=== PATIENT | male | born 1950 | race African-American/Black ===

== ENCOUNTER 2016-07-11 10:18 | Inpatient (IN) | payer MEDICARE ==
[~2016-07-11] VITALS: Ht 180.3 cm; Wt 55.1 kg
[~2016-07-11 10:18] MED LIST: LISI-661 PO; METF500T4 PO; MULT1TAB70 PO; OMEP20 PO; VITAD1000 PO
[2016-07-11 10:38] LABS: GLUCOSE,POINT OF CARE 582 MG/DL (70-110)
[2016-07-11] MEDS ORDERED: PIPERACILLIN/TAZO 3.375 GM/D5W 50 ML IV ONE (11:30)
[2016-07-11] MEDS ORDERED: SODIUM CHLORIDE 0.9% 1,000 ML IV ONE (11:30)
[2016-07-11] MEDS ORDERED: INSULIN REGULAR, HUMAN 100 UNITS/ML IVP ONE (11:30)
[2016-07-11 12:05] LABS: BASOPHILS % (AUTO) 0.9 % (0.0-2.0); EOSINOPHILS % (AUTO) 1.3 % (1.0-6.0); HEMATOCRIT 29.1 % (41-53); HEMOGLOBIN 9.2 g/dL (13.5-17.5); LYMPHOCYTES # (AUTO) 1.6 K/uL (1.0-4.8); LYMPHOCYTES % (AUTO) 22.2 % (22.0-44.0); MEAN CORPUSCULAR HEMOGLOBIN 28.5 pg (26.0-34.0); MEAN CORPUSCULAR HGB CONC 31.8 G/dL (31.0-37.0); MEAN CORPUSCULAR VOLUME 90 fL (80-100); MONOCYTES # (AUTO) 0.3 K/uL (0.1-1.0); MONOCYTES % (AUTO) 4.3 % (2.0-9.0); NEUTROPHILS % (AUTO) 71.3 % (40.0-70.0); PLATELET COUNT (AUTO) 547 K/uL (150-450); RED BLOOD CELL COUNT(AUTO) 3.24 MIL/uL (4.50-5.90); RED CELL DISTRIBUTION WIDTH 14.6 % (11.5-14.5)
[2016-07-11 12:27] LABS: ALBUMIN 2.8 g/dL (3.4-5.0); BILIRUBIN,TOTAL 0.3 mg/dL (0.1-1.0); CALCIUM, TOTAL 9.7 mg/dL (8.8-10.5); CREATININE 1.44 mg/dL (0.60-1.30); POTASSIUM 4.7 mmol/L (3.5-5.1); TOTAL PROTEIN, SERUM 8.9 g/dL (6.4-8.2)
[2016-07-11 12:34] LABS: GLUCOSE,POINT OF CARE 514 MG/DL (70-110)
[2016-07-11 13:42] LABS: GLUCOSE,POINT OF CARE 257 MG/DL (70-110)
[2016-07-11 13:42] LABS: GLUCOSE,POINT OF CARE 342 MG/DL (70-110)
[2016-07-11] MEDS ORDERED: ACETAMINOPHEN 325 MG TABLET PO PRN ×2 (14:00→18:30)
[2016-07-11] MEDS ORDERED: ONDANSETRON HCL 4 MG/2 ML VIAL IVP PRN ×2 (14:00→18:30)
[2016-07-11] MEDS ORDERED: DEXTROSE 50%-WATER 25 GM/50 ML SYRINGE IVP PRN ×3 (14:00→18:30)
[2016-07-11] MEDS ORDERED: INSULIN REGULAR, HUMAN 100 UNITS/ML SQ PRN (14:00)
[2016-07-11 14:50] VITALS: BP 121/88
[2016-07-11] MEDS ORDERED: MORPHINE SULFATE 2 MG/ML SYRINGE IVP PRN (18:30)
[2016-07-11] MEDS ORDERED: HYDROCODONE/ACETAMINOPHEN 5-325 MG TABLET PO PRN (18:30)
[2016-07-11] MEDS ORDERED: ZOLPIDEM TARTRATE 5 MG TABLET PO PRN (18:30)
[2016-07-11] MEDS ORDERED: ALBUTEROL SULFATE 2.5 MG/0.5 ML NEB SOLUTION NEB PRN (18:30)
[2016-07-11] MEDS ORDERED: MAGNESIUM HYDROXIDE SUSPENSION 30 ML UDCUP PO PRN (18:30)
[2016-07-11] MEDS ORDERED: IPRATROPIUM BROMIDE 0.5 MG/2.5 ML NEB SOLUTION NEB PRN (18:30)
[2016-07-11] MEDS ORDERED: BISACODYL 10 MG RECTAL RECTAL SUPPOSITORY PR PRN (18:30)
[2016-07-11] MEDS: INSULIN ASPART 100 UNITS/ML SQ PRN ×2 (18:47→20:32)
[2016-07-11 18:52] LABS: GLUCOSE,POINT OF CARE 241 MG/DL (70-110)
[2016-07-11 20:20] VITALS: BP 117/75
[2016-07-11] MEDS: DOCUSATE SODIUM 100 MG CAPSULE PO SCH (20:29)
[2016-07-11] MEDS: INSULIN DETEMIR 100 UNITS/ML SQ SCH (20:31)
[2016-07-11 21:23] LABS: GLUCOSE COMMENT 1 Received Meds; GLUCOSE,POINT OF CARE 227 MG/DL (70-110)
[2016-07-11 23:25] VITALS: BP 103/69
[2016-07-11] MEDS: HEPARIN SODIUM,PORCINE 5,000 UNITS/ML VIAL SQ SCH (23:37)
[2016-07-12 04:00] VITALS: BP 126/81
[2016-07-12] MEDS: INSULIN ASPART 100 UNITS/ML SQ PRN ×4 (05:58→20:14)
[2016-07-12 06:18] LABS: GLUCOSE,POINT OF CARE 124 MG/DL (70-110)
[2016-07-12 06:42] LABS: BASOPHILS % (AUTO) 0.8 % (0.0-2.0); EOSINOPHILS % (AUTO) 1.5 % (1.0-6.0); HEMATOCRIT 25.4 % (41-53); LYMPHOCYTES # (AUTO) 2.5 K/uL (1.0-4.8); LYMPHOCYTES % (AUTO) 42.7 % (22.0-44.0); MEAN CORPUSCULAR HEMOGLOBIN 28.9 pg (26.0-34.0); MEAN CORPUSCULAR HGB CONC 31.5 G/dL (31.0-37.0); MEAN CORPUSCULAR VOLUME 92 fL (80-100); MONOCYTES # (AUTO) 0.4 K/uL (0.1-1.0); MONOCYTES % (AUTO) 6.2 % (2.0-9.0); NEUTROPHILS # (AUTO) 2.8 K/uL (1.8-7.7); NEUTROPHILS % (AUTO) 48.8 % (40.0-70.0); PLATELET COUNT (AUTO) 453 K/uL (150-450); RED BLOOD CELL COUNT(AUTO) 2.78 MIL/uL (4.50-5.90); RED CELL DISTRIBUTION WIDTH 14.6 % (11.5-14.5); WHITE BLOOD COUNT (AUTO) 5.8 K/uL (4.5-11.0)
[2016-07-12 07:01] LABS: ALANINE AMINOTRANSFERASE 14 U/L (12-78); ALBUMIN 2.2 g/dL (3.4-5.0); ANION GAP 7 mmol/L (8-16); ASPARTATE AMINOTRANSFERASE 13 U/L (15-37); BILIRUBIN,TOTAL 0.2 mg/dL (0.1-1.0); CARBON DIOXIDE 25 mmol/L (22-29); CHLORIDE 99 mmol/L (98-107); CREATININE 1.02 mg/dL (0.60-1.30); GLOMERULAR FILTR. RATE CALC > 60 mL/min (>60); POTASSIUM 3.6 mmol/L (3.5-5.1); SODIUM SERUM 131 mmol/L (136-145); TOTAL PROTEIN, SERUM 7.1 g/dL (6.4-8.2); UREA NITROGEN, BLOOD 15 mg/dL (7-18)
[2016-07-12 07:12] LABS: HEMOGLOBIN A1C > 16.0 % (4.5-6.2)
[2016-07-12 07:59] VITALS: BP 121/83
[2016-07-12] MEDS ORDERED: PANTOPRAZOLE SODIUM 40 MG/VIAL IVP SCH (09:00)
[2016-07-12] MEDS: OMEPRAZOLE 20 MG CAPSULE PO SCH (09:24)
[2016-07-12] MEDS: LISINOPRIL 10 MG TABLET PO SCH (09:25)
[2016-07-12] MEDS: HEPARIN SODIUM,PORCINE 5,000 UNITS/ML VIAL SQ SCH ×2 (09:25→16:40)
[2016-07-12] MEDS: MULTIVITAMINS, THERAPEUTIC TABLET PO SCH (09:25)
[2016-07-12] MEDS: DOCUSATE SODIUM 100 MG CAPSULE PO SCH ×2 (09:25→20:03)
[2016-07-12] MEDS: CHOLECALCIFEROL (VIT D3) 1,000 UNITS TABLET PO SCH (09:28)
[2016-07-12 11:45] VITALS: BP 130/86
[2016-07-12 13:17] LABS: GLUCOSE,POINT OF CARE 188 MG/DL (70-110)
[2016-07-12] MEDS: MINERAL OIL/PETROLATUM 120 GM CREAM TP SCH (13:23)
[2016-07-12 16:00] VITALS: BP 119/76
[2016-07-12 18:22] LABS: GLUCOSE COMMENT 1 Received Meds; GLUCOSE,POINT OF CARE 350 MG/DL (70-110)
[2016-07-12 19:17] VITALS: BP 122/76
[2016-07-12] MEDS: INSULIN DETEMIR 100 UNITS/ML SQ SCH (20:12)
[2016-07-12 21:58] LABS: GLUCOSE COMMENT 1 Received Meds; GLUCOSE,POINT OF CARE 210 MG/DL (70-110)
[2016-07-12 23:30] VITALS: BP 120/68
[2016-07-13] MEDS: HEPARIN SODIUM,PORCINE 5,000 UNITS/ML VIAL SQ SCH ×4 (00:28→23:26)
[2016-07-13 04:40] VITALS: BP 117/65
[2016-07-13 04:51] VITALS: BP 111/60
[2016-07-13 06:36] LABS: EOSINOPHILS % (AUTO) 1.7 % (1.0-6.0); HEMATOCRIT 25.2 % (41-53); LYMPHOCYTES # (AUTO) 2.4 K/uL (1.0-4.8); LYMPHOCYTES % (AUTO) 41.9 % (22.0-44.0); MEAN CORPUSCULAR HEMOGLOBIN 28.8 pg (26.0-34.0); MEAN CORPUSCULAR HGB CONC 31.6 G/dL (31.0-37.0); MEAN CORPUSCULAR VOLUME 91 fL (80-100); MONOCYTES # (AUTO) 0.3 K/uL (0.1-1.0); MONOCYTES % (AUTO) 5.4 % (2.0-9.0); NEUTROPHILS # (AUTO) 2.9 K/uL (1.8-7.7); PLATELET COUNT (AUTO) 407 K/uL (150-450); RED BLOOD CELL COUNT(AUTO) 2.77 MIL/uL (4.50-5.90); RED CELL DISTRIBUTION WIDTH 14.6 % (11.5-14.5); WHITE BLOOD COUNT (AUTO) 5.7 K/uL (4.5-11.0)
[2016-07-13 07:17] LABS: GLUCOSE,POINT OF CARE 79 MG/DL (70-110)
[2016-07-13 07:30] LABS: ALANINE AMINOTRANSFERASE 14 U/L (12-78); ALBUMIN 2.1 g/dL (3.4-5.0); ANION GAP 8 mmol/L (8-16); ASPARTATE AMINOTRANSFERASE 14 U/L (15-37); BILIRUBIN,TOTAL 0.2 mg/dL (0.1-1.0); CALCIUM, TOTAL 8.8 mg/dL (8.8-10.5); CARBON DIOXIDE 23 mmol/L (22-29); CHLORIDE 100 mmol/L (98-107); GLOMERULAR FILTR. RATE CALC > 60 mL/min (>60); POTASSIUM 3.7 mmol/L (3.5-5.1); SODIUM SERUM 131 mmol/L (136-145); TOTAL PROTEIN, SERUM 6.7 g/dL (6.4-8.2); UREA NITROGEN, BLOOD 15 mg/dL (7-18)
[2016-07-13 08:20] VITALS: BP 113/65
[2016-07-13] MEDS: CHOLECALCIFEROL (VIT D3) 1,000 UNITS TABLET PO SCH (08:29)
[2016-07-13] MEDS: DOCUSATE SODIUM 100 MG CAPSULE PO SCH ×2 (08:29→20:11)
[2016-07-13] MEDS: MULTIVITAMINS, THERAPEUTIC TABLET PO SCH (08:29)
[2016-07-13] MEDS: LISINOPRIL 10 MG TABLET PO SCH (08:29)
[2016-07-13] MEDS: OMEPRAZOLE 20 MG CAPSULE PO SCH (08:29)
[2016-07-13] MEDS: POVIDONE-IODINE 10% 120 ML SOLUTION TP SCH (08:30)
[2016-07-13] MEDS: MINERAL OIL/PETROLATUM 120 GM CREAM TP SCH (08:30)
[2016-07-13 11:34] VITALS: BP 113/82
[2016-07-13] MEDS: INSULIN ASPART 100 UNITS/ML SQ PRN ×3 (11:42→21:46)
[2016-07-13 14:07] LABS: GLUCOSE COMMENT 1 Received Meds; GLUCOSE,POINT OF CARE 177 MG/DL (70-110)
[2016-07-13 19:35] VITALS: BP 131/78
[2016-07-13 19:57] LABS: GLUCOSE COMMENT 1 Received Meds; GLUCOSE,POINT OF CARE 185 MG/DL (70-110)
[2016-07-13] MEDS: INSULIN DETEMIR 100 UNITS/ML SQ SCH (21:43)
[2016-07-13 23:34] VITALS: BP 115/65
[2016-07-13 23:47] LABS: GLUCOSE COMMENT 1 Received Meds; GLUCOSE,POINT OF CARE 236 MG/DL (70-110)
[2016-07-14 04:02] VITALS: BP 137/64
[2016-07-14 06:27] LABS: GLUCOSE,POINT OF CARE 61 MG/DL (70-110)
[2016-07-14 06:52] LABS: GLUCOSE,POINT OF CARE 78 MG/DL (70-110)
[2016-07-14 07:11] LABS: BASOPHILS % (AUTO) 0.6 % (0.0-2.0); EOSINOPHILS % (AUTO) 1.1 % (1.0-6.0); HEMATOCRIT 25.3 % (41-53); LYMPHOCYTES # (AUTO) 1.4 K/uL (1.0-4.8); LYMPHOCYTES % (AUTO) 28.9 % (22.0-44.0); MEAN CORPUSCULAR HEMOGLOBIN 28.8 pg (26.0-34.0); MEAN CORPUSCULAR HGB CONC 31.6 G/dL (31.0-37.0); MEAN CORPUSCULAR VOLUME 91 fL (80-100); MONOCYTES # (AUTO) 0.4 K/uL (0.1-1.0); MONOCYTES % (AUTO) 7.4 % (2.0-9.0); PLATELET COUNT (AUTO) 425 K/uL (150-450); RED BLOOD CELL COUNT(AUTO) 2.78 MIL/uL (4.50-5.90); RED CELL DISTRIBUTION WIDTH 14.6 % (11.5-14.5); WHITE BLOOD COUNT (AUTO) 4.9 K/uL (4.5-11.0)
[2016-07-14 07:31] VITALS: BP 116/69
[2016-07-14 07:37] LABS: ALANINE AMINOTRANSFERASE 16 U/L (12-78); ALBUMIN 2.3 g/dL (3.4-5.0); ANION GAP 8 mmol/L (8-16); ASPARTATE AMINOTRANSFERASE 13 U/L (15-37); BILIRUBIN,TOTAL 0.1 mg/dL (0.1-1.0); CALCIUM, TOTAL 9.2 mg/dL (8.8-10.5); CARBON DIOXIDE 24 mmol/L (22-29); CHLORIDE 100 mmol/L (98-107); CREATININE 1.15 mg/dL (0.60-1.30); GLOMERULAR FILTR. RATE CALC > 60 mL/min (>60); POTASSIUM 3.9 mmol/L (3.5-5.1); SODIUM SERUM 132 mmol/L (136-145); TOTAL PROTEIN, SERUM 7.1 g/dL (6.4-8.2); UREA NITROGEN, BLOOD 19 mg/dL (7-18)
[2016-07-14] MEDS: CHOLECALCIFEROL (VIT D3) 1,000 UNITS TABLET PO SCH (08:06)
[2016-07-14] MEDS: DOCUSATE SODIUM 100 MG CAPSULE PO SCH ×2 (08:06→21:00)
[2016-07-14] MEDS: MULTIVITAMINS, THERAPEUTIC TABLET PO SCH (08:06)
[2016-07-14] MEDS: OMEPRAZOLE 20 MG CAPSULE PO SCH (08:06)
[2016-07-14] MEDS: POVIDONE-IODINE 10% 120 ML SOLUTION TP SCH (08:06)
[2016-07-14] MEDS: HEPARIN SODIUM,PORCINE 5,000 UNITS/ML VIAL SQ SCH ×3 (08:06→22:18)
[2016-07-14] MEDS: LISINOPRIL 10 MG TABLET PO SCH (08:06)
[2016-07-14] MEDS: MINERAL OIL/PETROLATUM 120 GM CREAM TP SCH (08:07)
[2016-07-14 11:28] VITALS: BP 129/77
[2016-07-14] MEDS: INSULIN ASPART 100 UNITS/ML SQ PRN ×3 (12:12→22:16)
[2016-07-14 12:37] LABS: GLUCOSE COMMENT 1 Received Meds; GLUCOSE,POINT OF CARE 265 MG/DL (70-110)
[2016-07-14 15:15] VITALS: BP 109/74
[2016-07-14 18:07] LABS: GLUCOSE COMMENT 1 Received Meds; GLUCOSE,POINT OF CARE 133 MG/DL (70-110)
[2016-07-14 20:03] VITALS: BP 120/76
[2016-07-14] MEDS: INSULIN DETEMIR 100 UNITS/ML SQ SCH (22:16)
[2016-07-14 23:56] VITALS: BP 123/71
[2016-07-15 00:17] LABS: GLUCOSE COMMENT 1 Received Meds; GLUCOSE,POINT OF CARE 339 MG/DL (70-110)
[2016-07-15 05:45] VITALS: BP 116/70
[2016-07-15] MEDS: INSULIN ASPART 100 UNITS/ML SQ PRN ×4 (06:15→20:55)
[2016-07-15 06:26] LABS: BASOPHILS % (AUTO) 0.7 % (0.0-2.0); EOSINOPHILS % (AUTO) 2.7 % (1.0-6.0); HEMATOCRIT 24.9 % (41-53); HEMOGLOBIN 7.9 g/dL (13.5-17.5); LYMPHOCYTES # (AUTO) 1.4 K/uL (1.0-4.8); LYMPHOCYTES % (AUTO) 31.9 % (22.0-44.0); MEAN CORPUSCULAR HGB CONC 31.9 G/dL (31.0-37.0); MEAN CORPUSCULAR VOLUME 91 fL (80-100); MONOCYTES # (AUTO) 0.4 K/uL (0.1-1.0); NEUTROPHILS # (AUTO) 2.5 K/uL (1.8-7.7); NEUTROPHILS % (AUTO) 55.7 % (40.0-70.0); PLATELET COUNT (AUTO) 390 K/uL (150-450); RED BLOOD CELL COUNT(AUTO) 2.74 MIL/uL (4.50-5.90); WHITE BLOOD COUNT (AUTO) 4.5 K/uL (4.5-11.0)
[2016-07-15 06:37] LABS: GLUCOSE COMMENT 1 Received Meds; GLUCOSE,POINT OF CARE 217 MG/DL (70-110)
[2016-07-15 06:38] LABS: ALANINE AMINOTRANSFERASE 16 U/L (12-78); ALBUMIN 2.3 g/dL (3.4-5.0); ANION GAP 9 mmol/L (8-16); ASPARTATE AMINOTRANSFERASE 14 U/L (15-37); BILIRUBIN,TOTAL 0.1 mg/dL (0.1-1.0); CARBON DIOXIDE 23 mmol/L (22-29); CHLORIDE 98 mmol/L (98-107); CREATININE 1.21 mg/dL (0.60-1.30); GLOMERULAR FILTR. RATE CALC > 60 mL/min (>60); SODIUM SERUM 130 mmol/L (136-145); TOTAL PROTEIN, SERUM 6.9 g/dL (6.4-8.2); UREA NITROGEN, BLOOD 19 mg/dL (7-18)
[2016-07-15 07:16] VITALS: BP 141/79
[2016-07-15] MEDS: DOCUSATE SODIUM 100 MG CAPSULE PO SCH ×2 (07:54→19:50)
[2016-07-15] MEDS: CHOLECALCIFEROL (VIT D3) 1,000 UNITS TABLET PO SCH (07:54)
[2016-07-15] MEDS: HEPARIN SODIUM,PORCINE 5,000 UNITS/ML VIAL SQ SCH ×3 (07:54→23:49)
[2016-07-15] MEDS: LISINOPRIL 10 MG TABLET PO SCH (07:54)
[2016-07-15] MEDS: MULTIVITAMINS, THERAPEUTIC TABLET PO SCH (07:54)
[2016-07-15] MEDS: MINERAL OIL/PETROLATUM 120 GM CREAM TP SCH (07:55)
[2016-07-15] MEDS: POVIDONE-IODINE 10% 120 ML SOLUTION TP SCH (07:55)
[2016-07-15] MEDS: OMEPRAZOLE 20 MG CAPSULE PO SCH (08:00)
[2016-07-15 11:20] VITALS: BP 128/77
[2016-07-15 12:07] LABS: GLUCOSE COMMENT 1 Received Meds; GLUCOSE,POINT OF CARE 145 MG/DL (70-110)
[2016-07-15 15:00] VITALS: BP 130/71
[2016-07-15 19:15] VITALS: BP 137/78
[2016-07-15 19:21] LABS: GLUCOSE COMMENT 1 Received Meds; GLUCOSE,POINT OF CARE 170 MG/DL (70-110)
[2016-07-15] MEDS: INSULIN DETEMIR 100 UNITS/ML SQ SCH (20:56)
[2016-07-15 21:27] LABS: GLUCOSE,POINT OF CARE 211 MG/DL (70-110)
[2016-07-16] VITALS (15 sets, daily range): BP systolic 108–165; BP diastolic 58–99
[2016-07-16 06:05] LABS: BASOPHILS % (AUTO) 0.6 % (0.0-2.0); EOSINOPHILS % (AUTO) 3.3 % (1.0-6.0); HEMATOCRIT 25.8 % (41-53); HEMOGLOBIN 8.2 g/dL (13.5-17.5); LYMPHOCYTES # (AUTO) 1.8 K/uL (1.0-4.8); LYMPHOCYTES % (AUTO) 37.7 % (22.0-44.0); MEAN CORPUSCULAR HEMOGLOBIN 28.8 pg (26.0-34.0); MEAN CORPUSCULAR HGB CONC 31.8 G/dL (31.0-37.0); MEAN CORPUSCULAR VOLUME 91 fL (80-100); MONOCYTES # (AUTO) 0.5 K/uL (0.1-1.0); MONOCYTES % (AUTO) 11.2 % (2.0-9.0); NEUTROPHILS # (AUTO) 2.3 K/uL (1.8-7.7); NEUTROPHILS % (AUTO) 47.2 % (40.0-70.0); PLATELET COUNT (AUTO) 386 K/uL (150-450); RED BLOOD CELL COUNT(AUTO) 2.84 MIL/uL (4.50-5.90); RED CELL DISTRIBUTION WIDTH 15.3 % (11.5-14.5); WHITE BLOOD COUNT (AUTO) 4.9 K/uL (4.5-11.0)
[2016-07-16 06:24] LABS: ALANINE AMINOTRANSFERASE 17 U/L (12-78); ALBUMIN 2.2 g/dL (3.4-5.0); ANION GAP 6 mmol/L (8-16); ASPARTATE AMINOTRANSFERASE 16 U/L (15-37); BILIRUBIN,TOTAL 0.1 mg/dL (0.1-1.0); CALCIUM, TOTAL 8.8 mg/dL (8.8-10.5); CARBON DIOXIDE 25 mmol/L (22-29); CHLORIDE 99 mmol/L (98-107); CREATININE 1.19 mg/dL (0.60-1.30); GLOMERULAR FILTR. RATE CALC > 60 mL/min (>60); POTASSIUM 4.1 mmol/L (3.5-5.1); SODIUM SERUM 130 mmol/L (136-145); TOTAL PROTEIN, SERUM 6.8 g/dL (6.4-8.2); UREA NITROGEN, BLOOD 21 mg/dL (7-18)
[2016-07-16 06:36] LABS: GLUCOSE COMMENT 1 Received Meds; GLUCOSE,POINT OF CARE 174 MG/DL (70-110)
[2016-07-16] MEDS: HEPARIN SODIUM,PORCINE 5,000 UNITS/ML VIAL SQ SCH ×3 (08:00→23:19)
[2016-07-16] MEDS: POVIDONE-IODINE 10% 120 ML SOLUTION TP SCH (09:00)
[2016-07-16] MEDS: DOCUSATE SODIUM 100 MG CAPSULE PO SCH ×2 (09:00→20:02)
[2016-07-16] MEDS ORDERED: POTASSIUM CHLORIDE 10 MEQ ER TABLET PO ONE (09:45)
[2016-07-16] MEDS ORDERED: MIDAZOLAM HCL 2 MG/2 ML VIAL ONE ×3 (11:42→14:55)
[2016-07-16] MEDS ORDERED: FentaNYL CITRATE-PF 100 MCG/2 ML VIAL ONE ×3 (11:42→14:55)
[2016-07-16] MEDS ORDERED: HEPARIN SODIUM 1000 UNITS/NS 500 ML ONE ×3 (11:43→15:14)
[2016-07-16] MEDS ORDERED: SODIUM BICARBONATE 50 MEQ/50 ML VIAL ONE (11:43)
[2016-07-16] MEDS ORDERED: LIDOCAINE HCL/PF 1% 30 ML VIAL ONE (11:43)
[2016-07-16] MEDS ORDERED: 0.9% SODIUM CHLORIDE 10 ML SYRINGE IVP ONE (11:43)
[2016-07-16 12:02] LABS: GLUCOSE,POINT OF CARE 136 MG/DL (70-110)
[2016-07-16] MEDS ORDERED: IODIXANOL 320 MG/ML 100 ML VIAL ONE (12:37)
[2016-07-16] MEDS ORDERED: IODIXANOL 320 MG/ML 50 ML VIAL ONE ×2 (12:46→15:27)
[2016-07-16] MEDS ORDERED: IODIXANOL 320 MG/ML 100 ML VIAL IARTER ONE (13:00)
[2016-07-16] MEDS: OMEPRAZOLE 20 MG CAPSULE PO SCH (13:00)
[2016-07-16] MEDS ORDERED: SODIUM CHLORIDE 0.9% 500 ML IV ONE (13:09)
[2016-07-16] MEDS ORDERED: FentaNYL CITRATE-PF 100 MCG/2 ML VIAL IVP ONE ×7 (13:10→15:49)
[2016-07-16] MEDS ORDERED: MIDAZOLAM HCL 2 MG/2 ML VIAL IVP ONE ×7 (13:10→15:49)
[2016-07-16] MEDS ORDERED: LIDOCAINE 1% 30 ML/SOD BICARB 8.4% 4 ML SQ ONE (13:15)
[2016-07-16] MEDS ORDERED: HEPARIN SODIUM 1000 UNITS/NS 500 ML IARTER ONE (13:15)
[2016-07-16] MEDS ORDERED: IODIXANOL 320 MG/ML 50 ML VIAL IARTER ONE ×2 (13:26)
[2016-07-16] MEDS ORDERED: HEPARIN SODIUM,PORCINE 5,000 UNITS/ML VIAL IVP ONE ×3 (13:33→15:04)
[2016-07-16] MEDS ORDERED: HEPARIN SODIUM,PORCINE 1,000 UNITS/ML 10 ML VIAL ONE (14:59)
[2016-07-16] MEDS ORDERED: DiphenhydrAMINE HCL 50 MG/ML VIAL IVP ONE (15:04)
[2016-07-16] MEDS ORDERED: DiphenhydrAMINE HCL 50 MG/ML VIAL ONE (15:08)
[2016-07-16] MEDS ORDERED: PROTAMINE SULFATE 10 MG/ML 5 ML VIAL IVP ONE (15:51)
[2016-07-16] MEDS ORDERED: PROTAMINE SULFATE 10 MG/ML 5 ML VIAL ONE (15:55)
[2016-07-16] MEDS: MULTIVITAMINS, THERAPEUTIC TABLET PO SCH (17:25)
[2016-07-16] MEDS: LISINOPRIL 10 MG TABLET PO SCH (17:25)
[2016-07-16] MEDS: MINERAL OIL/PETROLATUM 120 GM CREAM TP SCH (17:25)
[2016-07-16] MEDS: CHOLECALCIFEROL (VIT D3) 1,000 UNITS TABLET PO SCH (17:25)
[2016-07-16] MEDS: ASPIRIN 81 MG CHEWABLE TABLET PO SCH (17:28)
[2016-07-16] MEDS: INSULIN ASPART 100 UNITS/ML SQ PRN ×2 (17:44→21:09)
[2016-07-16 17:47] LABS: GLUCOSE,POINT OF CARE 141 MG/DL (70-110)
[2016-07-16] MEDS: INSULIN DETEMIR 100 UNITS/ML SQ SCH (21:09)
[2016-07-16 22:52] LABS: GLUCOSE,POINT OF CARE 292 MG/DL (70-110)
[2016-07-17 04:57] VITALS: BP 132/68
[2016-07-17] MEDS: INSULIN ASPART 100 UNITS/ML SQ PRN ×4 (05:23→20:16)
[2016-07-17 05:47] LABS: GLUCOSE,POINT OF CARE 182 MG/DL (70-110)
[2016-07-17 06:17] LABS: BASOPHILS % (AUTO) 0.5 % (0.0-2.0); EOSINOPHILS % (AUTO) 3.5 % (1.0-6.0); HEMATOCRIT 25.3 % (41-53); LYMPHOCYTES # (AUTO) 1.8 K/uL (1.0-4.8); LYMPHOCYTES % (AUTO) 29.4 % (22.0-44.0); MEAN CORPUSCULAR HEMOGLOBIN 28.9 pg (26.0-34.0); MEAN CORPUSCULAR HGB CONC 31.6 G/dL (31.0-37.0); MEAN CORPUSCULAR VOLUME 91 fL (80-100); MONOCYTES # (AUTO) 0.5 K/uL (0.1-1.0); MONOCYTES % (AUTO) 8.7 % (2.0-9.0); NEUTROPHILS # (AUTO) 3.6 K/uL (1.8-7.7); NEUTROPHILS % (AUTO) 57.9 % (40.0-70.0); PLATELET COUNT (AUTO) 386 K/uL (150-450); RED BLOOD CELL COUNT(AUTO) 2.77 MIL/uL (4.50-5.90); RED CELL DISTRIBUTION WIDTH 15.6 % (11.5-14.5); WHITE BLOOD COUNT (AUTO) 6.2 K/uL (4.5-11.0)
[2016-07-17 06:59] LABS: ALANINE AMINOTRANSFERASE 17 U/L (12-78); ALBUMIN 2.3 g/dL (3.4-5.0); ANION GAP 8 mmol/L (8-16); ASPARTATE AMINOTRANSFERASE 16 U/L (15-37); BILIRUBIN,TOTAL 0.2 mg/dL (0.1-1.0); CARBON DIOXIDE 26 mmol/L (22-29); CHLORIDE 99 mmol/L (98-107); CREATININE 1.03 mg/dL (0.60-1.30); GLOMERULAR FILTR. RATE CALC > 60 mL/min (>60); POTASSIUM 4.1 mmol/L (3.5-5.1); SODIUM SERUM 133 mmol/L (136-145); TOTAL PROTEIN, SERUM 6.9 g/dL (6.4-8.2); UREA NITROGEN, BLOOD 23 mg/dL (7-18)
[2016-07-17 07:50] VITALS: BP 123/72
[2016-07-17] MEDS: CHOLECALCIFEROL (VIT D3) 1,000 UNITS TABLET PO SCH (08:35)
[2016-07-17] MEDS: OMEPRAZOLE 20 MG CAPSULE PO SCH (08:35)
[2016-07-17] MEDS: ASPIRIN 81 MG CHEWABLE TABLET PO SCH (08:35)
[2016-07-17] MEDS: MULTIVITAMINS, THERAPEUTIC TABLET PO SCH (08:35)
[2016-07-17] MEDS: HEPARIN SODIUM,PORCINE 5,000 UNITS/ML VIAL SQ SCH ×2 (08:35→17:28)
[2016-07-17] MEDS: POVIDONE-IODINE 10% 120 ML SOLUTION TP SCH (08:36)
[2016-07-17] MEDS: LISINOPRIL 10 MG TABLET PO SCH (08:36)
[2016-07-17] MEDS: DOCUSATE SODIUM 100 MG CAPSULE PO SCH ×2 (08:36→20:15)
[2016-07-17] MEDS: MINERAL OIL/PETROLATUM 120 GM CREAM TP SCH (08:36)
[2016-07-17 11:36] VITALS: BP 113/78
[2016-07-17 16:41] VITALS: BP 146/86
[2016-07-17 17:22] LABS: GLUCOSE COMMENT 1 Received Meds; GLUCOSE,POINT OF CARE 330 MG/DL (70-110)
[2016-07-17 19:32] VITALS: BP 110/63
[2016-07-17 19:42] LABS: GLUCOSE COMMENT 1 Received Meds; GLUCOSE,POINT OF CARE 273 MG/DL (70-110)
[2016-07-17] MEDS: INSULIN DETEMIR 100 UNITS/ML SQ SCH (20:16)
[2016-07-17 23:26] VITALS: BP 104/61
[2016-07-18 05:19] VITALS: BP 105/59
[2016-07-18 05:27] LABS: GLUCOSE COMMENT 1 Received Meds; GLUCOSE,POINT OF CARE 165 MG/DL (70-110)
[2016-07-18 05:59] LABS: BASOPHILS % (AUTO) 0.5 % (0.0-2.0); EOSINOPHILS % (AUTO) 3.2 % (1.0-6.0); HEMATOCRIT 22.5 % (41-53); HEMOGLOBIN 7.1 g/dL (13.5-17.5); LYMPHOCYTES # (AUTO) 2.3 K/uL (1.0-4.8); LYMPHOCYTES % (AUTO) 29.8 % (22.0-44.0); MEAN CORPUSCULAR HEMOGLOBIN 28.6 pg (26.0-34.0); MEAN CORPUSCULAR HGB CONC 31.5 G/dL (31.0-37.0); MEAN CORPUSCULAR VOLUME 91 fL (80-100); MONOCYTES # (AUTO) 0.7 K/uL (0.1-1.0); NEUTROPHILS # (AUTO) 4.5 K/uL (1.8-7.7); NEUTROPHILS % (AUTO) 57.5 % (40.0-70.0); PLATELET COUNT (AUTO) 332 K/uL (150-450); RED BLOOD CELL COUNT(AUTO) 2.48 MIL/uL (4.50-5.90); RED CELL DISTRIBUTION WIDTH 15.4 % (11.5-14.5); WHITE BLOOD COUNT (AUTO) 7.8 K/uL (4.5-11.0)
[2016-07-18 06:11] LABS: ALANINE AMINOTRANSFERASE 13 U/L (12-78); ALBUMIN 2.2 g/dL (3.4-5.0); ANION GAP 7 mmol/L (8-16); ASPARTATE AMINOTRANSFERASE 11 U/L (15-37); BILIRUBIN,TOTAL 0.1 mg/dL (0.1-1.0); CALCIUM, TOTAL 8.5 mg/dL (8.8-10.5); CARBON DIOXIDE 26 mmol/L (22-29); CHLORIDE 101 mmol/L (98-107); CREATININE 1.31 mg/dL (0.60-1.30); GLOMERULAR FILTR. RATE CALC > 60 mL/min (>60); POTASSIUM 3.8 mmol/L (3.5-5.1); SODIUM SERUM 134 mmol/L (136-145); TOTAL PROTEIN, SERUM 6.5 g/dL (6.4-8.2); UREA NITROGEN, BLOOD 21 mg/dL (7-18)
[2016-07-18] MEDS: INSULIN ASPART 100 UNITS/ML SQ PRN ×4 (06:20→20:50)
[2016-07-18 07:26] LABS: GLUCOSE COMMENT 1 Received Meds; GLUCOSE,POINT OF CARE 175 MG/DL (70-110)
[2016-07-18] MEDS ORDERED: BUPIVACAINE HCL/PF 0.5% 30 ML VIAL ONE (07:29)
[2016-07-18] MEDS ORDERED: BACITRACIN 50,000 UNITS/VIAL ONE (07:29)
[2016-07-18] MEDS ORDERED: SODIUM CHLORIDE 0.9% 0 ML ONE (07:29)
[2016-07-18] MEDS ORDERED: LIDOCAINE HCL/PF 1% 30 ML VIAL ONE (07:29)
[2016-07-18 07:44] VITALS: BP 116/67
[2016-07-18] MEDS ORDERED: RINGERS SOLUTION,LACTATED 1,000 ML IV ONE (08:00)
[2016-07-18] MEDS: LISINOPRIL 10 MG TABLET PO SCH (08:09)
[2016-07-18] MEDS: MULTIVITAMINS, THERAPEUTIC TABLET PO SCH (08:09)
[2016-07-18] MEDS: OMEPRAZOLE 20 MG CAPSULE PO SCH (08:09)
[2016-07-18] MEDS: CHOLECALCIFEROL (VIT D3) 1,000 UNITS TABLET PO SCH (08:09)
[2016-07-18] MEDS: DOCUSATE SODIUM 100 MG CAPSULE PO SCH ×2 (08:09→20:53)
[2016-07-18] MEDS: ASPIRIN 81 MG CHEWABLE TABLET PO SCH (08:09)
[2016-07-18] MEDS: POVIDONE-IODINE 10% 120 ML SOLUTION TP SCH (09:00)
[2016-07-18 11:55] VITALS: BP 115/71
[2016-07-18 12:27] LABS: GLUCOSE COMMENT 1 Received Meds; GLUCOSE,POINT OF CARE 231 MG/DL (70-110)
[2016-07-18] MEDS ORDERED: SODIUM CHLORIDE 0.9% 250 ML IV ONE (14:45)
[2016-07-18 15:20] VITALS: BP 123/69
[2016-07-18] MEDS: IRON SUCROSE COMPLEX 100 MG in SODIUM CHLORIDE 0.9% 100 ML IV SCH (17:22)
[2016-07-18] MEDS: MINERAL OIL/PETROLATUM 120 GM CREAM TP SCH (17:30)
[2016-07-18 17:43] LABS: GLUCOSE COMMENT 1 Received Meds; GLUCOSE,POINT OF CARE 188 MG/DL (70-110)
[2016-07-18 20:00] VITALS: BP 119/70
[2016-07-18] MEDS: INSULIN DETEMIR 100 UNITS/ML SQ SCH (20:51)
[2016-07-19 00:47] LABS: GLUCOSE,POINT OF CARE 231 MG/DL (70-110)
[2016-07-19 01:03] VITALS: BP 118/62
[2016-07-19 04:44] VITALS: BP 127/72
[2016-07-19 06:41] LABS: GLUCOSE,POINT OF CARE 70 MG/DL (70-110)
[2016-07-19 07:21] LABS: BASOPHILS # (AUTO) 0.03 K/uL (0.00-0.20); BASOPHILS % (AUTO) 0.4 % (0.0-2.0); EOSINOPHILS # (AUTO) 0.15 K/uL (0.00-0.70); EOSINOPHILS % (AUTO) 2.13 % (1.0-6.0); HEMATOCRIT 22.6 % (41-53); HEMOGLOBIN 7.3 g/dL (13.5-17.5); LYMPHOCYTES % (AUTO) 27.6 % (22.0-44.0); MEAN CORPUSCULAR HEMOGLOBIN 29.6 pg (26.0-34.0); MEAN CORPUSCULAR HGB CONC 32.4 G/dL (31.0-37.0); MEAN CORPUSCULAR VOLUME 91 fL (80-100); MONOCYTES # (AUTO) 0.6 K/uL (0.1-1.0); MONOCYTES % (AUTO) 8.3 % (2.0-9.0); NEUTROPHILS # (AUTO) 4.4 K/uL (1.8-7.7); NEUTROPHILS % (AUTO) 61.5 % (40.0-70.0); PLATELET COUNT (AUTO) 339 K/uL (150-450); RED BLOOD CELL COUNT(AUTO) 2.47 MIL/uL (4.50-5.90); RED CELL DISTRIBUTION WIDTH 15.6 % (11.5-14.5); WHITE BLOOD COUNT (AUTO) 7.1 K/uL (4.5-11.0)
[2016-07-19 07:32] VITALS: BP 114/85
[2016-07-19] MEDS: CHOLECALCIFEROL (VIT D3) 1,000 UNITS TABLET PO SCH (08:56)
[2016-07-19] MEDS: LISINOPRIL 10 MG TABLET PO SCH (08:56)
[2016-07-19] MEDS: MULTIVITAMINS, THERAPEUTIC TABLET PO SCH (08:56)
[2016-07-19] MEDS: ASPIRIN 81 MG CHEWABLE TABLET PO SCH (08:56)
[2016-07-19] MEDS: OMEPRAZOLE 20 MG CAPSULE PO SCH (08:56)
[2016-07-19] MEDS: MINERAL OIL/PETROLATUM 120 GM CREAM TP SCH (08:57)
[2016-07-19] MEDS: POVIDONE-IODINE 10% 120 ML SOLUTION TP SCH (08:57)
[2016-07-19] MEDS: DOCUSATE SODIUM 100 MG CAPSULE PO SCH ×2 (08:57→20:08)
[2016-07-19 11:22] VITALS: BP 133/73
[2016-07-19 12:07] LABS: GLUCOSE,POINT OF CARE 104 MG/DL (70-110)
[2016-07-19 15:36] VITALS: BP 141/85
[2016-07-19] MEDS: IRON SUCROSE COMPLEX 100 MG in SODIUM CHLORIDE 0.9% 100 ML IV SCH (15:59)
[2016-07-19] MEDS: INSULIN ASPART 100 UNITS/ML SQ PRN ×2 (16:40→20:40)
[2016-07-19 16:42] LABS: GLUCOSE,POINT OF CARE 250 MG/DL (70-110)
[2016-07-19 19:42] VITALS: BP 118/73
[2016-07-19] MEDS: INSULIN DETEMIR 100 UNITS/ML SQ SCH (21:00)
[2016-07-19 21:32] LABS: GLUCOSE,POINT OF CARE 147 MG/DL (70-110)
[2016-07-20 00:23] VITALS: BP 122/75
[2016-07-20 05:37] LABS: HEMATOCRIT 22.3 % (41-53); HEMOGLOBIN 7.2 g/dL (13.5-17.5); MEAN CORPUSCULAR HEMOGLOBIN 29.6 pg (26.0-34.0); MEAN CORPUSCULAR HGB CONC 32.3 G/dL (31.0-37.0); MEAN CORPUSCULAR VOLUME 92 fL (80-100); PLATELET COUNT (AUTO) 320 K/uL (150-450); RED BLOOD CELL COUNT(AUTO) 2.43 MIL/uL (4.50-5.90); RED CELL DISTRIBUTION WIDTH 16.1 % (11.5-14.5); WHITE BLOOD COUNT (AUTO) 7.3 K/uL (4.5-11.0)
[2016-07-20 05:58] LABS: ANION GAP 8 mmol/L (8-16); CALCIUM, TOTAL 8.5 mg/dL (8.8-10.5); CARBON DIOXIDE 24 mmol/L (22-29); CHLORIDE 101 mmol/L (98-107); CREATININE 1.29 mg/dL (0.60-1.30); GLOMERULAR FILTR. RATE CALC > 60 mL/min (>60); POTASSIUM 4.5 mmol/L (3.5-5.1); SODIUM SERUM 133 mmol/L (136-145); UREA NITROGEN, BLOOD 19 mg/dL (7-18)
[2016-07-20] MEDS ORDERED: RINGERS SOLUTION,LACTATED 0 ML IV ONE (06:09)
[2016-07-20] MEDS ORDERED: RINGERS SOLUTION,LACTATED 1,000 ML IV ONE (06:15)
[2016-07-20] MEDS ORDERED: SODIUM CHLORIDE 0.9% 10 ML ONE (06:17)
[2016-07-20] MEDS ORDERED: BACITRACIN 50,000 UNITS/VIAL ONE (06:18)
[2016-07-20] MEDS ORDERED: LIDOCAINE HCL/PF 1% 30 ML VIAL ONE (06:18)
[2016-07-20] MEDS ORDERED: BUPIVACAINE HCL/PF 0.5% 30 ML VIAL ONE (06:18)
[2016-07-20] MEDS: INSULIN ASPART 100 UNITS/ML SQ PRN ×4 (06:42→21:29)
[2016-07-20 07:20] VITALS: BP 135/78
[2016-07-20 07:47] LABS: GLUCOSE,POINT OF CARE 198 MG/DL (70-110)
[2016-07-20] MEDS: OMEPRAZOLE 20 MG CAPSULE PO SCH (08:05)
[2016-07-20] MEDS: DOCUSATE SODIUM 100 MG CAPSULE PO SCH ×2 (08:05→21:29)
[2016-07-20] MEDS: ASPIRIN 81 MG CHEWABLE TABLET PO SCH (08:06)
[2016-07-20] MEDS: LISINOPRIL 10 MG TABLET PO SCH (08:06)
[2016-07-20] MEDS: MULTIVITAMINS, THERAPEUTIC TABLET PO SCH (08:06)
[2016-07-20] MEDS: MINERAL OIL/PETROLATUM 120 GM CREAM TP SCH (08:07)
[2016-07-20] MEDS: CHOLECALCIFEROL (VIT D3) 1,000 UNITS TABLET PO SCH (08:13)
[2016-07-20 09:56] LABS: BAND NEUTROPHILS % (MANUAL) 4 % (1-5); EOSINOPHILS % (MANUAL) 1 % (1-6); LYMPHOCYTES % (MANUAL) 25 % (22-44); RBC MORPHOLOGY COMMENT NORMAL RBC MORPH; TOTAL CELLS COUNTED 100
[2016-07-20 11:10] VITALS: BP 123/68
[2016-07-20] MEDS: POVIDONE-IODINE 10% 120 ML SOLUTION TP SCH (11:50)
[2016-07-20] MEDS: IRON SUCROSE COMPLEX 100 MG in SODIUM CHLORIDE 0.9% 100 ML IV SCH (14:45)
[2016-07-20 14:57] LABS: GLUCOSE COMMENT 1 Received Meds; GLUCOSE,POINT OF CARE 210 MG/DL (70-110)
[2016-07-20 16:14] VITALS: BP 118/57
[2016-07-20 17:52] LABS: GLUCOSE COMMENT 1 Received Meds; GLUCOSE,POINT OF CARE 223 MG/DL (70-110)
[2016-07-20 19:37] VITALS: BP 140/83
[2016-07-20] MEDS: INSULIN DETEMIR 100 UNITS/ML SQ SCH (21:27)
[2016-07-20 23:33] VITALS: BP 120/67
[2016-07-21 04:50] VITALS: BP 129/70
[2016-07-21 06:07] LABS: GLUCOSE COMMENT 1 Juice/Food/D50 Given; GLUCOSE,POINT OF CARE 71 MG/DL (70-110)
[2016-07-21 06:07] LABS: GLUCOSE COMMENT 1 Received Meds; GLUCOSE,POINT OF CARE 235 MG/DL (70-110)
[2016-07-21 07:54] VITALS: BP 129/67
[2016-07-21] MEDS: LISINOPRIL 10 MG TABLET PO SCH (08:35)
[2016-07-21] MEDS: OMEPRAZOLE 20 MG CAPSULE PO SCH (08:36)
[2016-07-21] MEDS: MULTIVITAMINS, THERAPEUTIC TABLET PO SCH (08:36)
[2016-07-21] MEDS: DOCUSATE SODIUM 100 MG CAPSULE PO SCH ×2 (08:36→21:03)
[2016-07-21] MEDS: ASPIRIN 81 MG CHEWABLE TABLET PO SCH (08:36)
[2016-07-21] MEDS: CHOLECALCIFEROL (VIT D3) 1,000 UNITS TABLET PO SCH (08:36)
[2016-07-21] MEDS: MINERAL OIL/PETROLATUM 120 GM CREAM TP SCH (08:37)
[2016-07-21] MEDS: POVIDONE-IODINE 10% 120 ML SOLUTION TP SCH (08:37)
[2016-07-21 12:07] VITALS: BP 121/76
[2016-07-21] MEDS: IRON SUCROSE COMPLEX 100 MG in SODIUM CHLORIDE 0.9% 100 ML IV SCH (13:56)
[2016-07-21 15:35] VITALS: BP_SYST 131; BP_SYST 141; BP_DIAS 74; BP_DIAS 78
[2016-07-21 17:42] LABS: GLUCOSE COMMENT 1 Received Meds; GLUCOSE,POINT OF CARE 217 MG/DL (70-110)
[2016-07-21] MEDS: INSULIN ASPART 100 UNITS/ML SQ PRN ×2 (17:52→21:06)
[2016-07-21 19:27] VITALS: BP 128/72
[2016-07-21] MEDS: INSULIN DETEMIR 100 UNITS/ML SQ SCH (21:04)
[2016-07-21 21:42] LABS: GLUCOSE,POINT OF CARE 195 MG/DL (70-110)
[2016-07-21 23:59] VITALS: BP 109/60
[2016-07-22 05:15] VITALS: BP 119/65
[2016-07-22 07:07] LABS: BASOPHILS # (AUTO) 0.04 K/uL (0.00-0.20); BASOPHILS % (AUTO) 0.5 % (0.0-2.0); EOSINOPHILS # (AUTO) 0.15 K/uL (0.00-0.70); EOSINOPHILS % (AUTO) 1.91 % (1.0-6.0); HEMATOCRIT 24.1 % (41-53); HEMOGLOBIN 7.6 g/dL (13.5-17.5); LYMPHOCYTES % (AUTO) 25.7 % (22.0-44.0); MEAN CORPUSCULAR HEMOGLOBIN 29.4 pg (26.0-34.0); MEAN CORPUSCULAR HGB CONC 31.6 G/dL (31.0-37.0); MEAN CORPUSCULAR VOLUME 93 fL (80-100); MONOCYTES # (AUTO) 0.6 K/uL (0.1-1.0); MONOCYTES % (AUTO) 7.7 % (2.0-9.0); NEUTROPHILS # (AUTO) 4.9 K/uL (1.8-7.7); NEUTROPHILS % (AUTO) 64.2 % (40.0-70.0); PLATELET COUNT (AUTO) 352 K/uL (150-450); RED BLOOD CELL COUNT(AUTO) 2.59 MIL/uL (4.50-5.90); RED CELL DISTRIBUTION WIDTH 15.8 % (11.5-14.5); WHITE BLOOD COUNT (AUTO) 7.6 K/uL (4.5-11.0)
[2016-07-22 07:40] VITALS: BP 118/72
[2016-07-22 08:07] LABS: GLUCOSE,POINT OF CARE 61 MG/DL (70-110)
[2016-07-22 08:07] LABS: GLUCOSE,POINT OF CARE 107 MG/DL (70-110)
[2016-07-22] MEDS: LISINOPRIL 10 MG TABLET PO SCH (08:19)
[2016-07-22] MEDS: MULTIVITAMINS, THERAPEUTIC TABLET PO SCH (08:19)
[2016-07-22] MEDS: CHOLECALCIFEROL (VIT D3) 1,000 UNITS TABLET PO SCH (08:19)
[2016-07-22] MEDS: OMEPRAZOLE 20 MG CAPSULE PO SCH (08:19)
[2016-07-22] MEDS: ASPIRIN 81 MG CHEWABLE TABLET PO SCH (08:19)
[2016-07-22] MEDS: POVIDONE-IODINE 10% 120 ML SOLUTION TP SCH (08:21)
[2016-07-22] MEDS: MINERAL OIL/PETROLATUM 120 GM CREAM TP SCH (08:21)
[2016-07-22] MEDS: DOCUSATE SODIUM 100 MG CAPSULE PO SCH ×2 (08:21→20:35)
[2016-07-22 11:30] VITALS: BP 125/79
[2016-07-22] MEDS: INSULIN ASPART 100 UNITS/ML SQ PRN ×2 (12:10→17:51)
[2016-07-22 13:02] LABS: GLUCOSE COMMENT 1 Received Meds; GLUCOSE,POINT OF CARE 220 MG/DL (70-110)
[2016-07-22] MEDS: IRON SUCROSE COMPLEX 100 MG in SODIUM CHLORIDE 0.9% 100 ML IV SCH (14:07)
[2016-07-22] MEDS ORDERED: SODIUM CHLORIDE 0.9% 500 ML IV ONE (14:11)
[2016-07-22 15:19] VITALS: BP 110/64
[2016-07-22 19:02] LABS: GLUCOSE COMMENT 1 Received Meds; GLUCOSE,POINT OF CARE 227 MG/DL (70-110)
[2016-07-22 19:33] VITALS: BP 123/72
[2016-07-22] MEDS: INSULIN DETEMIR 100 UNITS/ML SQ SCH (20:39)
[2016-07-22 21:13] LABS: GLUCOSE,POINT OF CARE 123 MG/DL (70-110)
[2016-07-22 23:06] VITALS: BP 120/72
[2016-07-23 04:00] VITALS: BP 135/74
[2016-07-23 05:42] LABS: GLUCOSE COMMENT 1 Juice/Food/D50 Given; GLUCOSE,POINT OF CARE 55 MG/DL (70-110)
[2016-07-23 06:27] LABS: GLUCOSE COMMENT 1 Juice/Food/D50 Given; GLUCOSE,POINT OF CARE 67 MG/DL (70-110)
[2016-07-23 06:31] LABS: BASOPHILS % (AUTO) 0.9 % (0.0-2.0); EOSINOPHILS % (AUTO) 2.2 % (1.0-6.0); HEMATOCRIT 24.5 % (41-53); LYMPHOCYTES # (AUTO) 4.8 K/uL (1.0-4.8); LYMPHOCYTES % (AUTO) 42.9 % (22.0-44.0); MEAN CORPUSCULAR HEMOGLOBIN 30.2 pg (26.0-34.0); MEAN CORPUSCULAR HGB CONC 32.8 G/dL (31.0-37.0); MEAN CORPUSCULAR VOLUME 92 fL (80-100); MONOCYTES # (AUTO) 0.7 K/uL (0.1-1.0); MONOCYTES % (AUTO) 6.6 % (2.0-9.0); NEUTROPHILS # (AUTO) 5.3 K/uL (1.8-7.7); NEUTROPHILS % (AUTO) 47.4 % (40.0-70.0); PLATELET COUNT (AUTO) 373 K/uL (150-450); RED BLOOD CELL COUNT(AUTO) 2.66 MIL/uL (4.50-5.90); RED CELL DISTRIBUTION WIDTH 16.7 % (11.5-14.5); WHITE BLOOD COUNT (AUTO) 11.3 K/uL (4.5-11.0)
[2016-07-23] MEDS: OMEPRAZOLE 20 MG CAPSULE PO SCH (07:35)
[2016-07-23] MEDS: DOCUSATE SODIUM 100 MG CAPSULE PO SCH ×2 (07:35→20:41)
[2016-07-23] MEDS: MULTIVITAMINS, THERAPEUTIC TABLET PO SCH (07:35)
[2016-07-23] MEDS: ASPIRIN 81 MG CHEWABLE TABLET PO SCH (07:36)
[2016-07-23] MEDS: MINERAL OIL/PETROLATUM 120 GM CREAM TP SCH (07:36)
[2016-07-23] MEDS: POVIDONE-IODINE 10% 120 ML SOLUTION TP SCH (07:36)
[2016-07-23] MEDS: LISINOPRIL 10 MG TABLET PO SCH (07:36)
[2016-07-23] MEDS: CHOLECALCIFEROL (VIT D3) 1,000 UNITS TABLET PO SCH (07:36)
[2016-07-23 07:37] VITALS: BP 146/80
[2016-07-23 11:19] VITALS: BP 130/76
[2016-07-23 11:37] LABS: GLUCOSE COMMENT 1 Received Meds; GLUCOSE,POINT OF CARE 189 MG/DL (70-110)
[2016-07-23] MEDS: INSULIN ASPART 100 UNITS/ML SQ PRN ×2 (11:49→17:44)
[2016-07-23] MEDS ORDERED: MIDAZOLAM HCL 2 MG/2 ML VIAL IVP ONE (12:00)
[2016-07-23 14:17] LABS: INR 0.9 (0.9-1.1)
[2016-07-23 15:19] VITALS: BP 126/78
[2016-07-23] MEDS: IRON SUCROSE COMPLEX 100 MG in SODIUM CHLORIDE 0.9% 100 ML IV SCH (16:23)
[2016-07-23 17:22] LABS: GLUCOSE,POINT OF CARE 155 MG/DL (70-110)
[2016-07-23 20:11] VITALS: BP 130/70
[2016-07-23] MEDS: INSULIN DETEMIR 100 UNITS/ML SQ SCH (20:45)
[2016-07-23 23:38] VITALS: BP 136/79
[2016-07-24 03:28] VITALS: BP 118/72
[2016-07-24 05:07] LABS: GLUCOSE,POINT OF CARE 116 MG/DL (70-110)
[2016-07-24 05:32] LABS: BASOPHILS % (AUTO) 0.9 % (0.0-2.0); EOSINOPHILS % (AUTO) 3.4 % (1.0-6.0); HEMATOCRIT 26.8 % (41-53); HEMOGLOBIN 8.8 g/dL (13.5-17.5); LYMPHOCYTES # (AUTO) 2.1 K/uL (1.0-4.8); MEAN CORPUSCULAR HEMOGLOBIN 30.2 pg (26.0-34.0); MEAN CORPUSCULAR HGB CONC 32.8 G/dL (31.0-37.0); MEAN CORPUSCULAR VOLUME 92 fL (80-100); MONOCYTES # (AUTO) 0.4 K/uL (0.1-1.0); MONOCYTES % (AUTO) 5.9 % (2.0-9.0); NEUTROPHILS # (AUTO) 3.7 K/uL (1.8-7.7); NEUTROPHILS % (AUTO) 57.8 % (40.0-70.0); PLATELET COUNT (AUTO) 384 K/uL (150-450); RED BLOOD CELL COUNT(AUTO) 2.91 MIL/uL (4.50-5.90); RED CELL DISTRIBUTION WIDTH 16.8 % (11.5-14.5); WHITE BLOOD COUNT (AUTO) 6.4 K/uL (4.5-11.0)
[2016-07-24 05:56] LABS: ANION GAP 8 mmol/L (8-16); CALCIUM, TOTAL 9.3 mg/dL (8.8-10.5); CARBON DIOXIDE 25 mmol/L (22-29); CHLORIDE 99 mmol/L (98-107); CREATININE 1.19 mg/dL (0.60-1.30); GLOMERULAR FILTR. RATE CALC > 60 mL/min (>60); POTASSIUM 4.5 mmol/L (3.5-5.1); SODIUM SERUM 132 mmol/L (136-145); UREA NITROGEN, BLOOD 17 mg/dL (7-18)
[2016-07-24] MEDS ORDERED: SODIUM CHLORIDE 0.9% 1,000 ML IV ONE ×2 (06:00→06:22)
[2016-07-24] MEDS ORDERED: SODIUM CHLORIDE 0.9% 10 ML ONE (06:31)
[2016-07-24] MEDS ORDERED: PROPOFOL 1000 MG/ISO-OSM 100 ML IV ONE (07:13)
[2016-07-24] MEDS: LIDOCAINE HCL/PF 1% 30 ML VIAL ONE ×2 (07:35→07:48)
[2016-07-24] MEDS: BUPIVACAINE HCL/PF 0.5% 30 ML VIAL ONE ×2 (07:35→07:47)
[2016-07-24] MEDS: BACITRACIN 50,000 UNITS/VIAL ONE ×2 (07:44→07:47)
[2016-07-24] MEDS ORDERED: ONDANSETRON HCL 4 MG/2 ML VIAL IVP PRN (08:30)
[2016-07-24] MEDS ORDERED: NALOXONE HCL 1 MG/ML 2 ML SYG IVP PRN (08:30)
[2016-07-24 08:48] VITALS: BP 137/85
[2016-07-24] MEDS: CHOLECALCIFEROL (VIT D3) 1,000 UNITS TABLET PO SCH (08:56)
[2016-07-24] MEDS: MULTIVITAMINS, THERAPEUTIC TABLET PO SCH (08:56)
[2016-07-24] MEDS: ASPIRIN 81 MG CHEWABLE TABLET PO SCH (08:56)
[2016-07-24] MEDS: DOCUSATE SODIUM 100 MG CAPSULE PO SCH ×2 (08:56→20:54)
[2016-07-24] MEDS: OMEPRAZOLE 20 MG CAPSULE PO SCH (08:57)
[2016-07-24] MEDS: POVIDONE-IODINE 10% 120 ML SOLUTION TP SCH (08:57)
[2016-07-24] MEDS: LISINOPRIL 10 MG TABLET PO SCH (08:57)
[2016-07-24] MEDS: MINERAL OIL/PETROLATUM 120 GM CREAM TP SCH (10:14)
[2016-07-24 10:27] LABS: GLUCOSE,POINT OF CARE 157 MG/DL (70-110)
[2016-07-24 11:10] VITALS: BP 155/92
[2016-07-24 11:46] LABS: GLUCOSE,POINT OF CARE 239 MG/DL (70-110)
[2016-07-24] MEDS: INSULIN ASPART 100 UNITS/ML SQ PRN ×3 (11:51→20:55)
[2016-07-24] MEDS: IRON SUCROSE COMPLEX 100 MG in SODIUM CHLORIDE 0.9% 100 ML IV SCH (14:17)
[2016-07-24 15:20] VITALS: BP 154/80
[2016-07-24] MEDS: MetFORMIN HCL 500 MG TABLET PO SCH (17:36)
[2016-07-24 17:37] LABS: GLUCOSE COMMENT 1 Received Meds; GLUCOSE,POINT OF CARE 254 MG/DL (70-110)
[2016-07-24 19:28] VITALS: BP 114/73
[2016-07-24] MEDS ORDERED: OXYGEN THERAPY IH SCH (20:00)
[2016-07-24] MEDS: INSULIN DETEMIR 100 UNITS/ML SQ SCH (20:54)
[2016-07-24 21:42] LABS: GLUCOSE,POINT OF CARE 197 MG/DL (70-110)
[2016-07-24 23:59] VITALS: BP 124/76
[2016-07-25 04:36] VITALS: BP 127/71
[2016-07-25 06:27] LABS: GLUCOSE,POINT OF CARE 158 MG/DL (70-110)
[2016-07-25] MEDS: INSULIN ASPART 100 UNITS/ML SQ PRN ×3 (06:32→17:39)
[2016-07-25 07:19] VITALS: BP 125/63
[2016-07-25] MEDS: MULTIVITAMINS, THERAPEUTIC TABLET PO SCH (08:21)
[2016-07-25] MEDS: OMEPRAZOLE 20 MG CAPSULE PO SCH (08:21)
[2016-07-25] MEDS: CHOLECALCIFEROL (VIT D3) 1,000 UNITS TABLET PO SCH (08:21)
[2016-07-25] MEDS: DOCUSATE SODIUM 100 MG CAPSULE PO SCH ×2 (08:21→19:59)
[2016-07-25] MEDS: MetFORMIN HCL 500 MG TABLET PO SCH ×2 (08:21→17:40)
[2016-07-25] MEDS: LISINOPRIL 10 MG TABLET PO SCH (08:22)
[2016-07-25] MEDS: POVIDONE-IODINE 10% 120 ML SOLUTION TP SCH (08:22)
[2016-07-25] MEDS: ASPIRIN 81 MG CHEWABLE TABLET PO SCH (08:22)
[2016-07-25] MEDS: MINERAL OIL/PETROLATUM 120 GM CREAM TP SCH (08:23)
[2016-07-25 11:10] VITALS: BP 116/74
[2016-07-25 12:31] LABS: GLUCOSE,POINT OF CARE 157 MG/DL (70-110)
[2016-07-25] MEDS: IRON SUCROSE COMPLEX 100 MG in SODIUM CHLORIDE 0.9% 100 ML IV SCH (15:06)
[2016-07-25 15:28] VITALS: BP 127/79
[2016-07-25 18:02] LABS: GLUCOSE,POINT OF CARE 163 MG/DL (70-110)
[2016-07-25 19:57] LABS: GLUCOSE COMMENT 1 Received Meds; GLUCOSE,POINT OF CARE 159 MG/DL (70-110)
== END 2016-07-25 20:25 | disposition home or self-care (01) | DRG 271 ==
LOC: EMS 10:19 → 6N 14:08
PROVIDERS: ADMIT Hospitalist; ATTEND Hospitalist
PROC: 04CL3ZZ Extirpation of Matter from Left Femoral Artery, Percutaneous Approach (ICD-10-PCS; principal; 2016-07-16)
PROC: 047L3ZZ Dilation of Left Femoral Artery, Percutaneous Approach (ICD-10-PCS; 2016-07-16)
PROC: B41F1ZZ Fluoroscopy of Right Lower Extremity Arteries using Low Osmolar Contrast (ICD-10-PCS; 2016-07-16)
DX: E11.52 Type 2 diabetes mellitus with diabetic peripheral angiopathy with gangrene (principal); E44.0 Moderate protein-calorie malnutrition; M86.9 Osteomyelitis, unspecified; Z68.1 Body mass index [BMI] 19.9 or less, adult; E11.69 Type 2 diabetes mellitus with other specified complication; E11.65 Type 2 diabetes mellitus with hyperglycemia; I10 Essential (primary) hypertension; F10.10 Alcohol abuse, uncomplicated; Z59.0 Homelessness; Z72.0 Tobacco use; Z79.84 Long term (current) use of oral hypoglycemic drugs; Z89.429 Acquired absence of other toe(s), unspecified side; D63.8 Anemia in other chronic diseases classified elsewhere; Z53.29 Procedure and treatment not carried out because of patient's decision for other reasons
CPT/HCPCS: 36200; 37229; 73718; 75630; 75716; 75962; 82962; 83036; 87070; 87205; 88305; 88311; 93005; 93925; 96365; 96366; 96375; 99285; C9113; J1200; J1644; J1756; J1815; J2250; J2543; J2704; J2720; J3010; J3490; J7030; J7040; J7050; J7120; Q9967

== ENCOUNTER 2017-04-16 14:39 | Emergency (ER) | payer MEDICARE ==
[~2017-04-16] VITALS: Ht 175.3 cm; Wt 63.5 kg
[2017-04-16 14:47] LABS: GLUCOSE,POINT OF CARE 49 MG/DL (70-110)
[2017-04-16 15:17] LABS: GLUCOSE,POINT OF CARE 53 MG/DL (70-110)
[2017-04-16] MEDS ORDERED: FLUCONAZOLE 200 MG/NACL ISOOSM 100 ML IV ONE (15:30)
[2017-04-16] MEDS ORDERED: DiphenhydrAMINE HCL 50 MG/ML VIAL IVP ONE (15:30)
[2017-04-16] MEDS ORDERED: MethylPREDNISolone SOD SUCC 125 MG/2 ML VIAL IVP ONE (15:30)
[2017-04-16 15:44] LABS: BASOPHILS % (AUTO) 0.7 % (0.0-2.0); EOSINOPHILS % (AUTO) 11.5 % (1.0-6.0); HEMATOCRIT 38.1 % (41-53); HEMOGLOBIN 12.6 g/dL (13.5-17.5); LYMPHOCYTES # (AUTO) 0.9 K/uL (1.0-4.8); MEAN CORPUSCULAR HEMOGLOBIN 33.3 pg (26.0-34.0); MEAN CORPUSCULAR HGB CONC 33.1 G/dL (31.0-37.0); MEAN CORPUSCULAR VOLUME 101 fL (80-100); MONOCYTES # (AUTO) 0.3 K/uL (0.1-1.0); MONOCYTES % (AUTO) 4.5 % (2.0-9.0); NEUTROPHILS % (AUTO) 68.3 % (40.0-70.0); PLATELET COUNT (AUTO) 234 K/uL (150-450); RED BLOOD CELL COUNT(AUTO) 3.79 MIL/uL (4.50-5.90); RED CELL DISTRIBUTION WIDTH 15.2 % (11.5-14.5)
[2017-04-16 15:50] LABS: ANION GAP 9 mmol/L (8-16); CALCIUM, TOTAL 8.7 mg/dL (8.8-10.5); CARBON DIOXIDE 27 mmol/L (22-29); CHLORIDE 107 mmol/L (98-107); CREATININE 0.96 mg/dL (0.60-1.30); GLOMERULAR FILTR. RATE CALC > 60 mL/min (>60); GLUCOSE,RANDOM 124 mg/dL (70-110); POTASSIUM 4.1 mmol/L (3.5-5.1); SODIUM SERUM 143 mmol/L (136-145); UREA NITROGEN, BLOOD 12 mg/dL (7-18)
[2017-04-16 15:56] LABS: ALANINE AMINOTRANSFERASE 17 U/L (12-78); ALBUMIN 2.4 g/dL (3.4-5.0); ALKALINE PHOSPHATASE 138 U/L (46-116); ASPARTATE AMINOTRANSFERASE 29 U/L (15-37); BILIRUBIN,TOTAL 0.2 mg/dL (0.1-1.0); TOTAL PROTEIN, SERUM 6.3 g/dL (6.4-8.2)
[2017-04-16] MEDS ORDERED: DEXTROSE 50%-WATER 25 GM/50 ML SYRINGE IVP ONE (16:15)
[2017-04-16 16:37] LABS: GLUCOSE,POINT OF CARE 95 MG/DL (70-110)
[2017-04-16 17:57] LABS: GLUCOSE,POINT OF CARE 158 MG/DL (70-110)
[2017-04-16 18:05] VITALS: BP 148/88
== END 2017-04-16 18:39 | disposition home or self-care (01) ==
LOC: EMS 14:41
DX: T78.49XA Other allergy, initial encounter (principal); B37.0 Candidal stomatitis; E11.9 Type 2 diabetes mellitus without complications; I10 Essential (primary) hypertension; Z79.899 Other long term (current) drug therapy; Z79.4 Long term (current) use of insulin; X58.XXXA Exposure to other specified factors, initial encounter
CPT/HCPCS: 36415; 80053; 82962; 85025; 87210; 96365; 96375; 99285; J1200; J1450; J2930